=== PATIENT | male | born 1995 | race African-American/Black ===

== ENCOUNTER 2018-01-17 20:18 | Emergency (ER) | payer OTHER ==
[2018-01-17 20:22] VITALS: BP 112/89
--- NOTE | 2018-01-17 20:22 | ER Report ---
History and Physical Time Seen By MD: 20:21 HPI/ROS CHIEF COMPLAINT: Head injury HISTORY OF PRESENT ILLNESS: 22-year-old male who was playing basketball when he fell. He was slammed dunking the ball when he hung on the rim he's legs swung out nearly horizontal he fell backwards striking the left side of his head on the floor. He is complaining of severe throbbing headache with nausea but no actual vomiting. He notes no photophobia. He notes no neck pain. He is unsure whether he lost consciousness. He does have some amnesia of the event. This occurred about 3 hours prior to arrival. He notes no symptoms of numbness, tingling or weakness in arms or legs REVIEW OF SYSTEMS: Respiratory: No cough, no dyspnea. Cardiovascular: No chest pain, no palpitations. Gastrointestinal: No vomiting, no abdominal pain. Musculoskeletal: No back pain. Allergies: Coded Allergies: No Known Drug Allergies (Unverified , 01/17/18) Home Meds Active Scripts Hydrocodone Bit/Acetaminophen (NORCO 5-325 TABLET) 1 Each Tablet, 1 EACH PO Q4H PRN for PAIN, #10 TAB Prov:GALILEO DOBBINS DO 01/17/18 Ondansetron (ZOFRAN ODT) 4 Mg Tab.rapdis, 4 MG PO every 6 hours PRN for NAUSEA/VOMITING, #10 TAB TAKE 1 TABLET BY MOUTH EVERY 12 HOURS Prov:SHILPIGALILEO Martinez DO 01/17/18 Reviewed Nurses Notes: Yes Old Medical Records Reviewed: Yes Constitutional Vital Sign - Last 24 Hours 01/17/18 01/17/18 20:22 20:33 Temp 98.9 Pulse 78 85 Resp 16 B/P (MAP) 112/89 Pulse Ox 97 97 O2 Delivery Room Air Physical Exam Vital signs stable, afebrile, pulse ox normal General Appearance: The patient is alert, has no immediate need for airway protection and no signs of toxicity. Moderate distress, palpation of the head and neck reveals tenderness in the left temporal parietal area. There is no depressed skull segment. There is soft tissue swelling consistent with a contusion. HEENT: Pupils equal and round no pallor or injection. PERRLA TMs normal, Respiratory: There are no retractions, lungs are clear to auscultation. Cardiovascular: Regular rate and rhythm. Gastrointestinal: Abdomen is soft and non tender, no masses, bowel sounds normal. Neurological: Alert and oriented 3, cranial nerves II through XII intact motor 5/5 all groups, sensory intact to light touch 4, cerebellum grossly intact Skin: Warm and dry, no rashes. Musculoskeletal: Neck is supple non tender. No tenderness on aggressive palpation of the midline Extremities are nontender, nonswollen and have full range of motion. DIFFERENTIAL DIAGNOSIS: After history and physical exam differential diagnosis was considered for head injury including but not limited to concussion, skull fracture, intraparenchymal contusion, subarachnoid, subdural and epidural hematoma. Medical Decision Making EKG/Imaging Imaging Results: CT scan of the head was obtained. The results of the study are no acute findings. She was provided a copy of the report. The study was read by the radiologist. I viewed the images myself on the PACS system. ED Course/Re-evaluation ED Course Patient admitted to an examination room. H&P was done. The differential diagnoses was considered. Patient with significant head injury. He has nausea. He has amnesia of the event. Complaining of severe headache. A CT scan of the head is ordered. He is treated with Tylenol and Zofran. He does feel better. His CAT scan returns normal. Patient's discharged home. He is advised ibuprofen 600 mg 3 times daily with food. She given a prescription for Zofran and [place]. He is advised to follow-up with primary care if unimproved in 3-5 days. Decision to Disposition Date: Jan 17, 2018 Decision to Disposition Time: 21:12 Depart Departure Latest Vital Signs Vital Signs Date Time Temp Pulse Resp B/P (MAP) Pulse Ox O2 Delivery O2 Flow Rate FiO2 01/17/18 20:33 85 97 01/17/18 20:22 98.9 16 112/89 Room Air Impression: Primary Impression: Head injury Additional Impressions: Concussion Nausea alone Condition: Improved Disposition: HOME OR SELF-CARE New Scripts Hydrocodone Bit/Acetaminophen (NORCO 5-325 TABLET) 1 Each Tablet 1 EACH PO Q4H PRN for PAIN, #10 TAB Prov: GALILEO DOBBINS DO 01/17/18 Ondansetron (ZOFRAN ODT) 4 Mg Tab.rapdis 4 MG PO every 6 hours PRN for NAUSEA/VOMITING, #10 TAB TAKE 1 TABLET BY MOUTH EVERY 12 HOURS Prov: GALILEO DOBBINS DO 01/17/18 Patient Instructions: Concussion (ED) Additional Instructions: Take ibuprofen 200 mg 3 tablets 3 times a day with food Follow-up with primary care if unimproved in 3-5 days. Problem Qualifiers Primary Impression: Head injury Encounter type: initial encounter Qualified Codes: S09.90XA - Unspecified injury of head, initial encounter Additional Impressions: Concussion Encounter type: initial encounter Loss of consciousness presence/duration: with LOC of 30 min or less Qualified Codes: S06.0X1A - Concussion with loss of consciousness of 30 minutes or less, initial encounter GALILEO DOBBINS DO Jan 17, 2018 20:22
[2018-01-17] MEDS ORDERED: ACETAMINOPHEN 325 MG TAB PO ONE (20:30)
[2018-01-17] MEDS ORDERED: ONDANSETRON 4 MG ODT TABDP SL ONE (20:30)
--- NOTE | 2018-01-17 21:10 | RADIOLOGY IMAGING REPORT ---
FACILITY: [facility] - [place] PATIENT NAME: Tripp Bermudez : 1995 MR: [id number] V: [id number] EXAM DATE: ORDERING PHYSICIAN: GALILEO DOBBINS TECHNOLOGIST: Location: [facility] Patient: Tripp Bermudez : 1995 Visit/Account:[id number] Date of Sevice: 01/17/2018 EXAMINATION: CT HEAD WITHOUT CONTRAST COMPARISON: None available HISTORY: fell playing basketball ? LOC PROCEDURE: Noncontrast CT from the vertex through the skull base. One of the following dose optimizat ion techniques was utilized in the performance of this exam: Automated exposure control; adjustment o f the mA and/or kV according to the patient's size; or use of an iterative reconstruction technique. Specific details can be referenced in the facility's radiology CT exam operational policy. FINDINGS: Brain volume: Age-appropriate. Hemorrhage/extra-axial fluid: None. Mass effect/midline shift/edema: None. Ischemia: Aguilera-white differentiation is preserved. Ventricles and basal cisterns: Within normal limits. Posterior fossa: Negative. Vessels: Negative. Calvarium, skull base, and scalp: Negative. Visualized sinuses and orbits: Within normal limits. IMPRESSION: Negative noncontrast head CT. Report Dictated By: Bakari King MD at 01/17/2018 8:59 PM Report E-Signed By: Bakari King MD at 01/17/2018 9:06 PM [id number]
[2018-01-17] MEDS ORDERED: HYDR-4309 PO (21:14)
[2018-01-17] MEDS ORDERED: ONDA4TAB PO (21:14)
[2018-01-17] MEDS ORDERED: ONDANSETRON 4 MG ODT TH SL ONE (21:20)
[2018-01-17] MEDS ORDERED: ACET/HYDROC 5/325MG TH ER ONLY 2 TAB/BOTTLE PO ONE (21:20)
== END 2018-01-17 21:41 | disposition home or self-care (01) ==
LOC: ER 20:25
DX: S06.0X1A Concussion with loss of consciousness of 30 minutes or less, initial encounter (principal); S09.90XA Unspecified injury of head, initial encounter; R11.0 Nausea
CPT/HCPCS: 99284; S0119; 70450